=== PATIENT | female | born 1965 | race Caucasian/White ===

== ENCOUNTER 2022-11-09 12:56 | Outpatient (REF) | payer BC, SELFPAY ==
--- NOTE | ~2022-11-09 | US_ITS ---
EXAMINATION: US VENOUS BILATERAL LOWER EXTREMITIES (REFLUX EXAM) CLINICAL INDICATION: Varicose veins right lower extremity. COMPARISON: None available. TECHNIQUE: Color flow triplex imaging and compression Doppler was performed to evaluate both the deep and the superficial systems bilaterally. To evaluate the superficial system, the examination was performed in the upright position. Color-flow Doppler ultrasound and compression ultrasound were utilized. In addition, maneuvers were utilized to demonstrate reflux. FINDINGS: 1. DEEP VENOUS ULTRASOUND OF THE RIGHT LOWER EXTREMITY: Respiratory variation, normal compression and augmented flow are noted in the right common femoral vein as well as the right popliteal vein and there is no evidence of deep venous thrombosis at these locations. There is no evidence of reflux in the deep system in either the common femoral vein or the popliteal vein. There is no evidence of a Lopez's cyst. 2. SUPERFICIAL ULTRASOUND WITH DOPPLER OF RIGHT LOWER EXTREMITY: The right great saphenous vein at the saphenofemoral junction measures 7 mm, at the proximal thigh 2 mm, at the mid thigh 3 mm, above the knee 3 mm, at the knee 2 mm, [id number] 1 mm, midcalf 1 mm and at the ankle measures 1 mm. There is no reflux demonstrated in the right great saphenous vein. Duplicated Right Great Saphenous Vein: There is a 4 mm medial accessory saphenous that does not reflux. There is a 5 mm lateral accessory saphenous that does not reflux. The right small saphenous vein measures 3 mm and shows no reflux. Accessory Vein of Giacomini: None Incompetent Perforators: There is a 2 mm physical medicine specialist from the small saphenous vein that demonstrates 3 seconds of reflux. Varices Present: None. 3. DEEP VENOUS ULTRASOUND OF THE LEFT LOWER EXTREMITY: Respiratory variation, normal compression and augmented flow are noted in the left common femoral vein as well as the left popliteal vein and there is no evidence of deep venous thrombosis at these locations. There is no evidence of reflux in the deep system in either the common femoral vein or the popliteal vein. There is no evidence of a Lopez's cyst. 4. SUPERFICIAL ULTRASOUND WITH DOPPLER OF LEFT LOWER EXTREMITY: Left great saphenous vein at the saphenofemoral junction measures 8 mm, at the proximal thigh 4 mm, at the mid thigh 5 mm, above the knee 4 mm, at the knee 4 mm, [id number] 4 mm, midcalf 3 mm and at the ankle measures 3 mm. There is segmental reflux in the left great saphenous below the knee and in the calf with reflux times of 2.4 seconds. Duplicated Left Great Saphenous Vein: There is a lateral accessory saphenous measuring 4 mm that does not reflux. The left small saphenous vein measures 2 mm and shows no reflux. Accessory Vein of Giacomini: None. Incompetent Perforators: None. Varices Present: None. US/US venous duplex LE BI IMPRESSION: 1. No evidence of reflux or thrombus in the common femoral veins or popliteal veins bilaterally. 2. Segmental reflux in the left great saphenous below the knee and in the calf. 3. Single incompetent physical medicine specialist as described above.
== END 2022-11-09 12:57 | disposition home or self-care (01) ==
LOC: HO.US 12:56
PROVIDERS: Visit Provider Radiology Vascular & Interventional Radiology
DX: I83.811 Varicose veins of right lower extremity with pain (principal); I87.2 Venous insufficiency (chronic) (peripheral)
CPT/HCPCS: 93970